=== PATIENT | female | born 1945 | race African-American/Black ===

== ENCOUNTER 2016-12-07 15:38 | Emergency (ER) | payer MEDICARE ==
--- NOTE | 2016-12-07 16:12 | ER Document Report ---
ED Medical Screen (RME) - General Chief Complaint: Dizziness Stated Complaint: NEAR SYCOPAL EPISODE Mode of Arrival: Ambulatory Information source: Patient Notes: 71 y/o F presents to ED complaining of episode of dizziness and near syncopal episode. Reports similar episodes in the past. Denies chest pain or sob. I have greeted and performed a rapid initial assessment of this patient. A comprehensive ED assessment and evaluation of the patient, analysis of test results and completion of the medical decision making process will be conducted by additional ED providers. TRAVEL OUTSIDE OF THE [place] IN LAST 30 DAYS: No - Related Data Allergies/Adverse Reactions: No Known Allergies Allergy (Unverified 12/07/16 16:01) Past Medical History - Social History Chew tobacco use (# tins/day): No Frequency of alcohol use: None Drug Abuse: None Renal/ Medical History: Denies: Hx Peritoneal Dialysis Physical Exam - General General appearance: Appears well, Alert In distress: None - Respiratory Respiratory status: No respiratory distress - Neurological Neuro grossly intact: Yes Cognition: Normal Orientation: AAOx4 [place] Coma Scale Eye Opening: Spontaneous Connie Coma Scale Verbal: Oriented Connie Coma Scale Motor: Obeys Commands [place] Coma Scale Total: 15 Speech: Normal Motor strength normal: LUE, RUE, LLE, RLE
[2016-12-07 17:09] LABS: APPEARANCE,URINE CLEAR; BILIRUBIN,URINE NEGATIVE (NEGATIVE); GLUCOSE, URINE NEGATIVE (NEGATIVE); KETONES,URINE NEGATIVE (NEGATIVE); LEUKOCYTE ESTERASE,URINE NEGATIVE (NEGATIVE); NITRITE,URINE NEGATIVE (NEGATIVE); PROTEIN,URINE NEGATIVE (NEGATIVE); URINE SPECIFIC GRAVITY 1.009; UROBILINOGEN,URINE NEGATIVE mg/dL (<2.0)
[2016-12-07 17:32] LABS: ABSOLUTE EOSINOPHILS # (AUTO) 0.3 10^3/uL (0.0-0.6); ABSOLUTE LYMPHOCYTES (AUTO) 1.7 10^3/uL (0.5-4.7); ABSOLUTE MONOCYTES (AUTO) 0.3 10^3/uL (0.1-1.4); ABSOLUTE NEUT (AUTO) 5.2 10^3/uL (1.7-8.2); BASOPHILS % (AUTO) 0.5 % (0-2); EOSINOPHILS % (AUTO) 4.1 % (0-6); HEMATOCRIT 36.7 % (36.0-47.0); HEMOGLOBIN 12.6 g/dL (12.0-15.5); HGB HCT DIFFERENCE 1.1; LYMPHOCYTES % (AUTO) 22.7 % (13-45); MEAN CORPUSCULAR HEMOGLOBIN 31.1 pg (27.0-33.4); MEAN CORPUSCULAR HGB CONC 34.4 g/dL (32.0-36.0); MEAN CORPUSCULAR VOLUME 90 fl (80-97); MONOCYTES % (AUTO) 4.3 % (3-13); RED BLOOD COUNT 4.06 10^6/uL (3.72-5.28); RED CELL DISTRIBUTION WIDTH 13.4 % (11.5-14.0); SEGMENTED NEUTROPHILS % (AUTO) 68.4 % (42-78); WHITE BLOOD COUNT 7.5 10^3/uL (4.0-10.5)
[2016-12-07 17:53] LABS: ALANINE AMINOTRANSFERASE 27 U/L (9-52); ALBUMIN 4.3 g/dL (3.5-5.0); ALKALINE PHOSPHATASE 116 U/L (38-126); ANION GAP 10 (5-19); ASPARTATE AMINO TRANSFERASE 26 U/L (14-36); BILIRUBIN,TOTAL 0.5 mg/dL (0.2-1.3); BLOOD UREA NITROGEN 21 mg/dL (7-20); CALCIUM 10.5 mg/dL (8.4-10.2); CARBON DIOXIDE 32 mmol/L (22-30); CHLORIDE 99 mmol/L (98-107); CREATINE KINASE 148 U/L (30-135); CREATININE RESULT 0.71 mg/dL (0.52-1.25); GLUCOSE 146 mg/dL (75-110)
[2016-12-07 18:03] LABS: CREATINE KINASE MB 0.25 ng/mL (<4.55); TROPONIN I < 0.012 ng/mL
--- NOTE | 2016-12-07 20:03 | EKG REPORT ---
SEVERITY:- ABNORMAL ECG - SINUS RHYTHM LEFT AXIS DEVIATION LEFT VENTRICULAR HYPERTROPHY BORDERLINE PROLONGED QT INTERVAL : Confirmed by: Romeo Beckham 07-Dec-2016 20:02:38
== END 2016-12-07 19:20 | disposition left against medical advice (07) ==
LOC: ER 15:38
DX: Z53.9 Procedure and treatment not carried out, unspecified reason (principal); R42 Dizziness and giddiness
CPT/HCPCS: 36415; 80053; 81001; 82550; 82553; 84484; 85025; 93005; 93010; 99281

== ENCOUNTER 2018-10-27 19:32 | Emergency (ER) | payer MEDICARE ==
[2018-10-27] MEDS ORDERED: GLUCAGON,HUMAN RECOMB 1 MG INJ SUBCUT ONE (19:50)
[2018-10-27] MEDS ORDERED: LORAZEPAM INJ 2 MG/1 ML VIAL IM ONE (19:51)
[2018-10-27] MEDS ORDERED: ONDANSETRON 4 MG TAB.RAPDIS PO ONE (19:52)
--- NOTE | 2018-10-27 19:53 | ER Document Report ---
ED Medical Screen (RME) - General Chief Complaint: Cough Stated Complaint: COUGHING UP BLOOD,BLOOD PRESSURE ISSUES Time Seen by Provider: 10/27/18 19:46 Notes: 73 years old female presents today with symptoms of dysphagia after eating some knots. She has previous symptoms 2. TRAVEL OUTSIDE OF THE [place] IN LAST 30 DAYS: No - Related Data Allergies/Adverse Reactions: No Known Allergies Allergy (Unverified 12/07/16 16:01) Past Medical History - Social History Chew tobacco use (# tins/day): No Frequency of alcohol use: None Drug Abuse: None Renal/ Medical History: Denies: Hx Peritoneal Dialysis Physical Exam - Vital signs Vitals: Temp Pulse Resp BP Pulse Ox 98.6 F 115 H 24 H 186/84 H 98 10/27/18 19:39 10/27/18 19:39 10/27/18 19:39 10/27/18 19:39 10/27/18 19:39 Course - Vital Signs Vital signs: Temp Pulse Resp BP Pulse Ox 98.6 F 115 H 24 H 186/84 H 98 10/27/18 19:39 10/27/18 19:39 10/27/18 19:39 10/27/18 19:39 10/27/18 19:39
--- NOTE | 2018-10-27 22:13 | ER Document Report ---
ED General - General Chief Complaint: Cough Stated Complaint: COUGHING UP BLOOD,BLOOD PRESSURE ISSUES Time Seen by Provider: 10/27/18 19:46 Notes: Patient is a 73-year-old female that presents to the emergency department for chief complaint of globus sensation. Patient states she feels like something is stuck in her throat, she is been having phlegm that she states she is unable to cough up, she thought she was coughing and might of been some blood associated, this occurred around 6:30 PM. She denies noting any associated fevers, chills, night sweats is otherwise feeling okay up until this point where she had this coughing fit. She is given medication of run in triage, and apparently caused some nausea and had some vomiting as well. Denies having any bloody nose, denies chest pain, shortness of breath or difficulty breathing. Denies any other complaints at this time. She just feels like something is stuck in her throat, she is had an episode like this in the past once before, did not require EGD. She is able to swallow her Secretions. Past Medical History: Hypertension Past Surgical History: Denies surgical history Social History: Denies tobacco, alcohol or drug use. Family History: Reviewed and noncontributory for presenting illness Allergies: Reviewed, see documented allergy list. REVIEW OF SYSTEMS: Other than noted above, the 12 point review of systems was reviewed with the patient and were negative, all pertinent findings are included in the HPI. PHYSICAL EXAMINATION: Vital signs reviewed, nursing noted reviewed. GENERAL: Well-appearing, well-nourished and in no acute distress. HEAD: Atraumatic, normocephalic. EYES: Eyes appear normal, extraocular movements intact, sclera anicteric, conjunctiva are normal. ENT: nares patent, oropharynx clear without exudates. Moist mucous membranes. NECK: Normal range of motion, supple without lymphadenopathy LUNGS: Breath sounds clear to auscultation bilaterally and equal. No wheezes rales or rhonchi. HEART: Regular rate and rhythm without murmurs ABDOMEN: Soft, nontender, normoactive bowel sounds. No rebound, guarding, or rigidity. No masses appreciated. EXTREMITIES: Nontender, good range of motion, no pitting or edema. NEUROLOGICAL: No focal neurological deficits. Moves all extremities spontaneously Motor and sensory grossly intact on exam. PSYCH: Normal mood, normal affect. SKIN: Warm, Dry, normal turgor, no rashes or lesions noted on exposed skin TRAVEL OUTSIDE OF THE [place] IN LAST 30 DAYS: No - Related Data Allergies/Adverse Reactions: No Known Allergies Allergy (Unverified 12/07/16 16:01) Past Medical History - Social History Smoking Status: Never Smoker Chew tobacco use (# tins/day): No Frequency of alcohol use: None Drug Abuse: None Family History: Reviewed & Not Pertinent Patient has suicidal ideation: No Patient has homicidal ideation: No Renal/ Medical History: Denies: Hx Peritoneal Dialysis Physical Exam - Vital signs Vitals: Temp Pulse Resp BP Pulse Ox 98.6 F 115 H 24 H 186/84 H 98 10/27/18 19:39 10/27/18 19:39 10/27/18 19:39 10/27/18 19:39 10/27/18 19:39 Course - Re-evaluation Re-evalutation: Patient seen and examined vital signs reviewed. Initially noted to be mildly tachycardic, and hypertensive, upon my evaluation, without intervention specifically for blood pressure or heart rate, her heart rate was in the 90s, blood pressure did come down to 155/96. Laboratory data and imaging were ordered as appropriate for the patient's presenting symptoms and complaint, with consideration of any critical or life threatening conditions that may be associated with their obtained history and exam as noted above. Patient was treated with IM Ativan, glucagon, ordered by triage provider, she apparently did have an episode of vomiting after this treatment, and ordered a GI cocktail, will order basic blood work, and chest x-ray. Results were reviewed when available and demonstrated mild anemia but otherwise unremarkable, chest x-ray negative The patient was re-evaluated and was stable, still has globus sensation, after GI cocktail, will give a dose of Mucinex, as I feel that this is likely mucus versus sputum, the patient feels like she cannot clear, as she had an associated cough, will also prescribe Flonase. Have her follow-up with ear nose and throat. Patient was maintaining her secretions. Evaluation was most consistent with globus sensation Results were discussed with the patient at this point, after careful c onsideration I feel that that patient can be discharged from the emergency department, the patient was educated treatments and reasons to return to the emergency department based on their presumed diagnosis as noted above, they were advised to followup with a primary care physician in 2-3 days. Patient was agreeable to plan of care. *Note is created using voice recognition software and may contain spelling, syntax or grammatical errors. Laboratory 10/27/18 10/27/18 22:45 22:45 WBC 11.6 H RBC 3.82 Hgb 11.5 L Hct 34.5 L MCV 90 MCH 30.2 MCHC 33.4 RDW 13.2 Plt Count 283 Seg Neutrophils % 77.4 Lymphocytes % 16.8 Monocytes % 3.5 Eosinophils % 1.9 Basophils % 0.4 Absolute Neutrophils 9.0 H Absolute Lymphocytes 2.0 Absolute Monocytes 0.4 Absolute Eosinophils 0.2 Absolute Basophils 0.0 Sodium 141.4 Potassium 4.1 Chloride 105 Carbon Dioxide 31 H Anion Gap 5 BUN 17 Creatinine 0.69 Est GFR ( Amer) > 60 Est GFR (Non-Af Amer) > 60 Glucose 140 H Calcium 9.5 Chest X-Ray 10/27/18 22:23 IMPRESSION: No acute cardiopulmonary process copyright 2011 [employer]- All Rights Reserved - Vital Signs Vital signs: Temp Pulse Resp BP Pulse Ox 98.6 F 115 H 24 H 186/84 H 98 10/27/18 19:39 10/27/18 19:39 10/27/18 19:39 10/27/18 19:39 10/27/18 19:39 - Laboratory Result Diagrams: 10/27/18 22:45 10/27/18 22:45 Laboratory results interpreted by me: 10/27/18 10/27/18 22:45 22:45 WBC 11.6 H Hgb 11.5 L Hct 34.5 L Absolute Neutrophils 9.0 H Carbon Dioxide 31 H Glucose 140 H Discharge - Discharge Clinical Impression: Globus sensation Condition: Stable Disposition: HOME, SELF-CARE Instructions: Dysphagia ([facility]) Additional Instructions: Please follow-up with your primary care physician tomorrow, as scheduled, you can also follow-up with the ear nose and throat physician, that is provided with the paperwork, call for an appointment, please take the prescribed medications. Prescriptions: Fluticasone Propionate [Flonase Nasal [place] 50 Mcg/[place] 16 gm] 1 spray NASL Q12 #1 inhaler Guaifenesin [Mucinex] 1,200 mg PO BID #30 tab.er.[id number] Referrals: JESÚS KEITH DO [ASSOCIATE] - Follow up in 3-5 days
[2018-10-27] MEDS ORDERED: METOCLOPRAMIDE HCL 10 MG TABLET PO ONE (22:24)
[2018-10-27] MEDS ORDERED: MAG HYDROX/AL HYDROX/SIMETH SUSP 30 ML UDCUP PO ONE (22:24)
[2018-10-27] MEDS ORDERED: LIDOCAINE 2% VISCOUS SOLN 20 ML UDCUP PO ONE (22:24)
[2018-10-27] MEDS ORDERED: METOCLOPRAMIDE HCL ORAL SOLN 10 MG/10 ML UDCUP PO ONE (22:24)
--- NOTE | 2018-10-27 22:49 | RADIOLOGY REPORT (SQ) ---
EXAM DESCRIPTION: XR CHEST 1 VIEW COMPLETED DATE/TME: 10/27/2018 22:23 CLINICAL HISTORY: 73 years, Female, cough COMPARISON: None. NUMBER OF VIEWS: 1 TECHNIQUE: Portable upright chest LIMITATIONS: None. FINDINGS: The heart size is normal. Minimal scarring left lung base. Lungs are otherwise clear. No pneumothorax IMPRESSION: No acute cardiopulmonary process copyright 2010 [employer]- All Rights Reserved
[2018-10-27 23:02] LABS: ABSOLUTE EOSINOPHILS # (AUTO) 0.2 10^3/uL (0.0-0.6); ABSOLUTE MONOCYTES (AUTO) 0.4 10^3/uL (0.1-1.4); BASOPHILS % (AUTO) 0.4 % (0-2); EOSINOPHILS % (AUTO) 1.9 % (0-6); HEMATOCRIT 34.5 % (36.0-47.0); HEMOGLOBIN 11.5 g/dL (12.0-15.5); LYMPHOCYTES % (AUTO) 16.8 % (13-45); MEAN CORPUSCULAR HEMOGLOBIN 30.2 pg (27.0-33.4); MEAN CORPUSCULAR HGB CONC 33.4 g/dL (32.0-36.0); MEAN CORPUSCULAR VOLUME 90 fl (80-97); MONOCYTES % (AUTO) 3.5 % (3-13); PLATELET COUNT 283 10^3/uL (150-450); RED BLOOD COUNT 3.82 10^6/uL (3.72-5.28); RED CELL DISTRIBUTION WIDTH 13.2 % (11.5-14.0); SEGMENTED NEUTROPHILS % (AUTO) 77.4 % (42-78); TOTAL CELLS COUNTED % (AUTO) 100 %; WHITE BLOOD COUNT 11.6 10^3/uL (4.0-10.5)
[2018-10-27 23:13] LABS: ANION GAP 5 (5-19); BLOOD UREA NITROGEN 17 mg/dL (7-20); CALCIUM 9.5 mg/dL (8.4-10.2); CARBON DIOXIDE 31 mmol/L (22-30); CHLORIDE 105 mmol/L (98-107); GLUCOSE 140 mg/dL (75-110); POTASSIUM 4.1 mmol/L (3.6-5.0); SODIUM 141.4 mmol/L (137-145)
[2018-10-27] MEDS ORDERED: GUAIFENESIN 600 MG TABLET.SA PO ONE (23:21)
[2018-10-27 23:35] VITALS: BP 134/77
== END 2018-10-27 23:43 | disposition home or self-care (01) ==
LOC: ER 19:32
DX: R09.89 Other specified symptoms and signs involving the circulatory and respiratory systems (principal); R05 Cough; I10 Essential (primary) hypertension
CPT/HCPCS: 99284; 96372; 36415; 85025; 80048; 71045; A9270 ×3; J1610; J3490; J2060; S0119

== ENCOUNTER → 2019-03-29 | Outpatient (CLI) | payer MEDICARE ==
--- NOTE | 2019-03-29 13:01 | RADIOLOGY REPORT (SQ) ---
EXAM DESCRIPTION: ELBOW RIGHT >2 VIEWS COMPLETED DATE/TIME: 03/29/2019 12:36 pm REASON FOR STUDY: RT ELBOW PAIN M25.521 PAIN IN RIGHT ELBOW COMPARISON: None. NUMBER OF VIEWS: Four views. TECHNIQUE: AP, lateral, and both oblique radiographic images acquired of the right elbow. LIMITATIONS: None. FINDINGS: MINERALIZATION: Normal. BONES: No acute fracture or dislocation. No worrisome bone lesions. JOINT: No effusion. SOFT TISSUES: No soft tissue swelling. No foreign body. OTHER: No other significant finding. IMPRESSION: NEGATIVE STUDY OF THE RIGHT ELBOW. NO RADIOGRAPHIC EVIDENCE OF ACUTE INJURY. TECHNICAL DOCUMENTATION: JOB ID: [id number] [employer]- All Rights Reserved Reading location - IP/workstation name: [email or web address]
== END ==
LOC: OD 12:24
PROVIDERS: ATTEND Nurse Practitioner Family
DX: M25.521 Pain in right elbow (principal)

== ENCOUNTER → 2019-06-12 | Outpatient (CLI) | payer MEDICARE ==
--- NOTE | 2019-06-12 14:28 | RADIOLOGY REPORT (SQ) ---
EXAM DESCRIPTION: MRI LUMBAR SPINE WITHOUT COMPLETED DATE/TIME: 06/12/2019 11:39 am REASON FOR STUDY: M54.17 RADICULOPATHY, LUMBOSACRAL REGION M54.17 RADICULOPATHY, LUMBOSACRAL REGION COMPARISON: None. TECHNIQUE: Sagittal and Axial imaging includes T1, T2, STIR and gradient echo sequences. Coronal T2/ HASTE imaging. LIMITATIONS: None. FINDINGS: VISUALIZED UPPER ABDOMEN: Limited evaluation. No acute or suspicious findings suggested. SEGMENTATION: No transitional anatomy. The lowest well-developed disc space is labeled L5-S1. ALIGNMENT: Slight anterolisthesis of T11 with respect to T12. Slight retrolisthesis of the T12 with respect to L1. Slight anterolisthesis of L3 over L4 VERTEBRAE: Intact. BONE MARROW: Densely sclerotic vertebral body endplate changes at L4-5 DISC SIGNAL: Diffuse decreased T2 weighted intervertebral disc signal throughout the lumbar spine spa ring the L5-S1 disc level POSTERIOR ELEMENTS: Generally intact. No pars defect evident. HARDWARE: None in the spine. CORD AND CONUS: Normal in size and signal intensity. Conus at the L1-2 level. SOFT TISSUES: No aortic aneurysm seen. No bulky retroperitoneal adenopathy or mass. No paraspinal mas s or fluid. T10-11: At the upper edge of the field of view. Mild grade 1 anterolisthesis of T10 over T11, bulky bilateral facet hypertrophy are present causing mild central canal narrowing and moderate bilateral foraminal narrowing. T11-12: Mild grade 1 anterolisthesis of T11 over T12, very bulky bilateral facet and ligament hypert rophy cause mild central canal narrowing and mild right foraminal narrowing. High-grade left foramin al narrowing. T12-L1: Slight retrolisthesis of T12 over L1, broad diffuse posterior disc bulging and moderate bila teral facet hypertrophy cause borderline central canal narrowing and mild bilateral foraminal narrowi ng. L1-L2: Mild bilateral facet hypertrophy. No central stenosis. Mild bilateral foraminal narrowing L2-L3: Minimal posterior disc bulging, mild bilateral facet hypertrophy. No central stenosis. Mild bilateral inferior foraminal narrowing without exiting L2 nerve root impingement L3-L4: Grade 1 anterolisthesis of L3 over L4, bulky bilateral facet and ligament hypertrophy cause mo derate central canal stenosis. There is effacement of the CSF around the lumbar nerve roots on axial T2 image 20. Moderate to high-grade bilateral foraminal narrowing is present with partial effacemen t of fat around the exiting L3 nerve roots bilaterally. L4-L5: Broad diffuse posterior disc bulge and bony spurring, moderate bilateral facet and ligament hy pertrophy. Mild central canal narrowing. High-grade bilateral foraminal narrowing with partial effa cement of the fat around the exiting bilateral L4 nerve roots L5-S1: Mild bilateral facet and ligament hypertrophy. No central or foraminal stenosis SACRUM: Visualized upper sacrum intact. OTHER: No other significant findings. IMPRESSION: Multilevel significant central and foraminal stenosis. Diffuse advanced facet arthropat hy TECHNICAL DOCUMENTATION: JOB ID: [id number] [employer]- All Rights Reserved Reading location - IP/workstation name: [email or web address]
== END ==
LOC: RAD 10:21
PROVIDERS: ATTEND Nurse Practitioner Family
DX: M54.17 Radiculopathy, lumbosacral region (principal)
CPT/HCPCS: 72148

== ENCOUNTER 2019-09-03 10:05 | Emergency (ER) | payer MEDICARE ==
[2019-09-03 10:13] VITALS: BP 156/81
[2019-09-03] MEDS ORDERED: ACETAMINOPHEN 325 MG TABLET PO ONE (10:16)
--- NOTE | 2019-09-03 10:22 | ER Document Report ---
HPI - HPI Time Seen by Provider: 09/03/19 10:10 Pain Level: 4 Context: Patient is a 74-year-old female with a history of HIV and HTN who presents to the emergency department with a chief complaint of bilateral hip pain. Patient reports back in April she was developing left hip pain that was gradual. Patient reports she did see her primary care physician who ordered an MRI of the left hip in June. Patient reports that she was told she had arthritis. Patient reports yesterday she developed bilateral hip pain. Patient denies recent injury or fall. Patient was told to take Tylenol as needed for her pain. Patient reports she took an Aleve yesterday without much relief. Patient denies numbness or tingling down her lower extremities. Patient denies loss of bowel or bladder. Patient denies back pain. Patient reports the bilateral hip pain appears to be worse in the morning and with certain movements such as bending over. - REPRODUCTIVE Reproductive: DENIES: : Past Medical History - General Information source: Patient - Social History Smoking Status: Unknown if Ever Smoked Frequency of alcohol use: None Drug Abuse: None Lives with: Family Family History: Reviewed & Not Pertinent Patient has suicidal ideation: No Patient has homicidal ideation: No - Past Medical History Cardiac Medical History: Reports: Hx Hypertension Pulmonary Medical History: Reports: None EENT Medical History: Reports: None Neurological Medical History: Reports: None Endocrine Medical History: Reports: None Renal/ Medical History: Reports: None. Denies: Hx Peritoneal Dialysis Malignancy Medical History: Reports: None GI Medical History: Reports: None Musculoskeletal Medical History: Reports None Skin Medical History: Reports None Psychiatric Medical History: Reports: None Traumatic Medical History: Reports: None Infectious Medical History: Reports: Hx HIV Vertical Provider Document - CONSTITUTIONAL Agree With Documented VS: Yes Exam Limitations: No Limitations General Appearance: No Apparent Distress - INFECTION CONTROL TRAVEL OUTSIDE OF THE [place] IN LAST 30 DAYS: No - HEENT HEENT: Atraumatic, Normal ENT Exam, Normocephalic, PERRLA - NECK Neck: Normal Inspection - RESPIRATORY Respiratory: Breath Sounds Normal, No Respiratory Distress - CARDIOVASCULAR Cardiovascular: Regular Rate, Regular Rhythm - GI/ABDOMEN Gastrointestinal: Abdomen Soft, Abdomen Non-Tender, Normal Bowel Sounds - BACK Back: Normal Inspection Notes: There is no cervical, thoracic or lumbar midline tenderness with palpation. - MUSCULOSKELETAL/EXTREMETIES Musculoskeletal/Extremeties: FROM, Non-Tender Notes: No specific tenderness noted over the bilateral hips. - NEURO Level of Consciousness: Awake, Alert, Appropriate - DERM Integumentary: Warm, Dry, No Rash Course - Re-evaluation Re-evalutation: 09/03/19 10:21 We will give patient a dose of Tylenol and obtain an x-ray of the bilateral hips. Did inform the patient that since there is no injury the x-ray most likely will be negative, may show arthritis but we will rule out bony abnormality such as a fracture dislocation. I did inform the patient she most likely needs to follow-up with primary care physician as this appears to be a chronic issue. 09/03/19 11:26 I did discuss the x-ray results with the patient. I did inform her there was no acute bony abnormality such as a fracture or dislocation. Did inform the patient she can use NSAIDs over the next few days but to be careful as this can cause gastric upset, ulcers and bleeding with long-term use. Did inform the patient to follow-up with her primary care physician. - Vital Signs Vital signs: Temp Pulse Resp BP Pulse Ox 97.2 F 84 14 156/81 H 100 09/03/19 10:09 09/03/19 10:09 09/03/19 10:09 09/03/19 10:09 09/03/19 10:09 - Diagnostic Test Radiology reviewed: Reports reviewed Radiology results interpreted by me: 09/03/19 11:22 Hip X-Ray 09/03/19 10:15 IMPRESSION: NO ACUTE FINDINGS Discharge - Discharge Clinical Impression: Bilateral hip pain Condition: Stable Disposition: HOME, SELF-CARE Additional Instructions: Today you are seen in the emergency department for bilateral hip pain. Your x- rays were negative. I am unsure what is causing your pain as this has been chronic and ongoing since April. The right hip pain could be associated with the left hip pain. Since you do have arthritis of the left hip as you were told by your primary care physician you could guard and avoid certain movements and positions to avoid the pain. This in turn can cause problems with the right hip and balance. Ultimately you do need to follow-up with your primary care physician for follow-up. You can use Tylenol or anti-inflammatories such as ibuprofen or Aleve. Please use caution using anti-inflammatories as this can upset your stomach, cause gastric bleeding and ulcers when used frequently and for long-term. Arthritis Your symptoms are due to arthritis. Arthritis is an inflammation of the joints. There are many types -- osteoarthritis (due to "wear and tear"), auto- immmune arthritis (such as rheumatoid, lupus, Aleksandra's, and others), and crystal-induced arthritis (such as gout and pseudogout). The physician's examination, combined with laboratory tests, will determine the cause of your arthritis. All types of arthritis are treated with antiinflammatory medications. Other medication may be required for special types of arthritis, or if your problem does not respond to the antiinflammatory medicine. Local warmth may be helpful. Move the involved joints through the full range of motion daily. Mild exercise is usually still possible for most persons with arthritis (ask your physician). Swimming provides good exercise without damaging the joints. Contact the physician if you are worsening in any way. Acetaminophen Acetaminophen may be taken for pain relief or fever control. It's much safer than aspirin, offering a wider range of "safe" dosages. It is safe during . Some brand names are Tylenol, Panadol, Datril, Anacin 3, Tempra, and Liquiprin. Acetaminophen can be repeated every four hours. The following are maximum recommended dosages: WEIGHT Dose Drops Elixir Chewable(80mg) (LBS.) drprs=droppers tsp=teaspoon 6 40 mg .4 ml (1/2) 6-11 80 mg .8 ml (full) 1/2 tsp 1 tab 12-16 120 mg 1 1/2 drprs 3/4 tsp 1 1/2 tabs 17-23 160 mg 2 drprs 1 tsp 2 tabs 24-30 240 mg 3 drprs 1 1/2 tsp 3 tabs 30-35 320 mg 2 tsp 4 tabs 36-41 360 mg 2 1/4 tsp 4 1/2 tabs 42-47 400 mg 2 1/2 tsp 5 tabs 48-53 480 mg 3 tsp 6 tabs 54-59 520 mg 3 1/4 tsp 6 1/2 tabs 60-64 560 mg 3 1/2 tsp 7 tabs 65-70 600 mg 3 3/4 tsp 7 1/2 tabs 71-76 640 mg 4 tsp 8 tabs 77-82 720 mg 4 1/2 tsp 9 tabs 83-88 800 mg 5 tsp 10 tabs >89 pounds or adults 650 mg to 900 mg Acetaminophen can be repeated every four hours. Maximum daily dose not to exceed 4000 mg. These maximum recommended dosages are slightly higher than the dosages written on the product container, but these dosages are very safe and well below the toxic dosage for acetaminophen. Referrals: WILIAN MORGAN NP [Primary Care Provider] - Follow up as needed
--- NOTE | 2019-09-03 11:19 | RADIOLOGY REPORT (SQ) ---
EXAM DESCRIPTION: HIP BILATERAL COMPLETED DATE/TIME: 09/03/2019 10:51 am REASON FOR STUDY: bilateral hip pain COMPARISON: None. NUMBER OF VIEWS: Two views. TECHNIQUE: AP pelvis and additional frog-leg view of the right and left hip. LIMITATIONS: None. FINDINGS: MINERALIZATION: Normal. RIGHT HIP: No fracture or dislocation. No worrisome bone lesions. LEFT HIP: No fracture or dislocation. No worrisome bone lesions. PUBIS AND ISCHIUM: No fracture. PELVIS: No fracture. SACRUM: No fracture or dislocation. Mild right SI joint sclerosis. LOWER LUMBAR SPINE: High-grade disc space loss of height at L4-5 SOFT TISSUES: No findings. OTHER: No other significant finding. IMPRESSION: NO ACUTE FINDINGS TECHNICAL DOCUMENTATION: JOB ID: [id number] [employer]- All Rights Reserved Reading location - IP/workstation name: [email or web address]
== END 2019-09-03 11:25 | disposition home or self-care (01) ==
LOC: ER 10:05
DX: M25.551 Pain in right hip (principal); M25.552 Pain in left hip; I10 Essential (primary) hypertension; Z21 Asymptomatic human immunodeficiency virus [HIV] infection status
CPT/HCPCS: 73522; A9270; 99283